=== PATIENT | male | born 1935 | race Hispanic/Latino ===

== ENCOUNTER 2018-03-03 08:19 | Day surgery (SDC) | payer OTHER, MEDICARE ==
[2018-02-27 10:59] VITALS: BP 159/69
[2018-02-27 11:01] LABS: BASOPHILS % (AUTO) 1.4 % (0.0-5.0); EOSINOPHILS % (AUTO) 7.3 % (0.0-8.0); HEMATOCRIT 42.9 % (42-54); MEAN CORPUSCULAR HEMOGLOBIN 30.9 pg (27.0-33.0); MEAN CORPUSCULAR HGB CONC 33.9 g/dL (32.0-36.0); MEAN CORPUSCULAR VOLUME 91.1 fL (79-99); MONOCYTES % (AUTO) 7.3 % (3.0-13.0); NUCLEATED RED BLOOD CELLS 0.1 % (0.0-0.19); PLATELET COUNT (AUTO) 335 K/uL (130-400); RED BLOOD CELL COUNT(AUTO) 4.71 MIL/uL (4.50-6.20); WHITE BLOOD COUNT (AUTO) 8.7 K/uL (4.8-10.8)
[2018-02-27 11:06] LABS: CREATININE 1.2 mg/dL (0.5-1.5); POTASSIUM 5.6 mmol/L (3.5-5.1)
[2018-03-03] VITALS (16 sets, daily range): BP systolic 142–175; BP diastolic 67–88
[~2018-03-03] VITALS: Ht 167.6 cm; Wt 59.0 kg
[~2018-03-03 08:19] MED LIST: ASPI-555 PO; ATOR20TA65 PO; IPRA3AMP24 IH; LOSA25TA16 PO; METO-391 PO; PANT40TA25 PO
[2018-03-03] MEDS ORDERED: LACTATED RINGERS 1000ML 1,000 ML IV ONE (09:19)
[2018-03-03] MEDS: CEFAZOLIN SODIUM 1 GM VIAL ONE ×2 (09:30→11:21)
[2018-03-03] MEDS ORDERED: NEOMY SULF/POLYMYXIN B SULFATE 1 ML AMPUL IR ONE (09:50)
[2018-03-03] MEDS ORDERED: PROPOFOL 10 MG/ML 20ML VIAL IV ONE (09:56)
[2018-03-03] MEDS ORDERED: FENTANYL CITRATE PF 50 MCG/1 ML 5ML AMP IV ONE (09:56)
[2018-03-03] MEDS ORDERED: ONDANSETRON HCL 4 MG/2 ML VIAL ONE (09:56)
[2018-03-03] MEDS ORDERED: DEXAMETHASONE SOD PHOSPHATE 10MG/ML 1ML VIAL ONE (09:56)
[2018-03-03] MEDS ORDERED: LIDOCAINE PF 2% 5ML ABBOJECT ONE (09:56)
[2018-03-03] MEDS ORDERED: EPHEDRINE SULFATE 50 MG/ML AMPULE ONE (09:58)
[2018-03-03] MEDS ORDERED: ENALAPRILAT DIHYDRATE 1.25MG/ML 1ML VIAL IV ONE (12:30)
[2018-03-03] MEDS ORDERED: FENTANYL CITRATE PF 50 MCG/1 ML 2ML VIAL ONE (13:11)
== END 2018-03-03 14:36 | disposition home or self-care (01) ==
LOC: DAH 08:19 → SUH 08:19
PROVIDERS: ATTEND Surgery
DX: K40.30 Unilateral inguinal hernia, with obstruction, without gangrene, not specified as recurrent (principal); E78.00 Pure hypercholesterolemia, unspecified; I10 Essential (primary) hypertension; J44.9 Chronic obstructive pulmonary disease, unspecified; F17.200 Nicotine dependence, unspecified, uncomplicated; Z72.89 Other problems related to lifestyle; Z79.82 Long term (current) use of aspirin; Z79.899 Other long term (current) drug therapy
CPT/HCPCS: 36415 ×2; 49507; 80048; 84132; 85025; 93005; A4218; A4450; A4452; A4510; A4600; C1781; J0690; J1100; J2001; J2405; J2704; J3010 ×2; J3490 ×3; J7120 ×2

== ENCOUNTER 2025-05-27 01:11 | Inpatient (IN) | payer OTHER, MEDICARE ==
[~2025-05-27] VITALS: Ht 165.1 cm; Wt 50.3 kg
[2025-05-27 01:50] LABS: IMMATURE GRANULOCYTE ABSOLUTE 0.05 K/uL (0-1); NUCLEATED RED BLOOD CELLS 0.0 % (0.0-0.19); PLATELET COUNT (AUTO) 409 K/uL (130-400); RED BLOOD CELL COUNT(AUTO) 3.23 MIL/uL (4.50-6.20); RED CELL DISTRIBUTION WIDTH 15.6 % (11.0-15.5); WHITE BLOOD COUNT (AUTO) 15.4 K/uL (4.8-10.8)
[2025-05-27 01:58] LABS: CREATININE 1.1 mg/dL (0.5-1.3); GLOMERULAR FILTR. RATE CALC 64.0 mL/min (>90); GLUCOSE,RANDOM 122.0 mg/dL (70-105); SODIUM SERUM 138.0 mmol/L (136-145); UREA NITROGEN, BLOOD 25.0 mg/dL (7-18)
[2025-05-27 02:02] LABS: ASPARTATE AMINOTRANSFERASE 24.0 U/L (10-37); CREATINE KINASE, TOTAL 40.0 U/L (21-232); TOTAL PROTEIN, SERUM 6.5 g/dL (6.0-8.3)
[2025-05-27 02:06] LABS: APPEARANCE,URINE CLOUDY (CLEAR); GLUCOSE, URINE (UA) NEGATIVE (NEGATIVE); LEUKOCYTE ESTERASE ,URINE NEGATIVE Leu/uL (NEGATIVE); NITRATE,URINE NEGATIVE (NEGATIVE); OCCULT BLOOD,URINE NEGATIVE (NEGATIVE)
[2025-05-27 02:09] LABS: ADD UA MICROSCOPIC YES
--- NOTE | 2025-05-27 02:31 | ERN ---
ED Note History of Present Illness Stated Complaint: ABDOMINAL PAIN Chief Complaint: Abdominal Pain Time Seen by MD: 01:15 Time Seen by Midlevel: 01:15 Dictation: The patient is an 89-year-old male with a history of dementia, hypertension, hyperlipidemia who presents to the emergency department with complaints of two weeks of lower abdominal pain, low appetite and dark stools. Per family they deny any fevers, denies nausea or vomiting, denies any diarrhea. Allergies: Coded Allergies: No Known Drug Allergies (Unverified Allergy, Unknown, 02/27/18) Home Meds Reported Medications Albuterol Sulfate (Albuterol Sulfate) 2.5 Mg/3 Ml (0.083 %) Vial.neb, 2.5 MG IH Q6HPRN PRN for SHORTNESS OF BREATH/WHEEZING 04/04/25 Fluticasone/Umeclidin/Vilanter (Trelegy Ellipta 100-62.5-25) 100-62.5 Blst.w.dev, 1 PUFF IH DAILY 04/03/25 Albuterol Sulfate (Ventolin Hfa/Proventil Hfa/Proair Hfa) 90 Mcg Puff, 2 INH IH Q4HPRN PRN for SHORTNESS OF BREATH/WHEEZING 04/03/25 Amlodipine Besylate (Amlodipine Besylate) 5 Mg Tablet, 1 TAB PO DAILY 04/03/25 Donepezil HCl (Donepezil HCl) 5 Mg Tablet, 1 TAB PO HS 04/03/25 Atorvastatin Calcium (Atorvastatin Calcium) 20 Mg Tablet, 20 MG PO HS, TAB 02/27/18 Past Medical History Past Medical History: COPD, Dementia, Hypertension, Renal Disese, Other Additional Past Medical Hx: Chronic respiratory failure on home oxygen Surgical History: Unknown Surgical History Other: INCARCERATED R INGUINAL HERNIA Family History: Negative Social History: Smokers, Negative RN Note Reviewed/Agreed w/PFSH: Yes Review of System Dictation Constitutional: Negative for fever,chills, and weight loss positive for low appetite Eyes: Negative for injury, pain,redness, and discharge ENT: Negative for injury,pain or swelling Cardiovascular: Negative for chest pain, palpitations, and edema Respiratory: Negative for shortness of breath, cough, and wheezing, Abdomen/GI: Negative for nausea, vomiting, diarrhea, and constipation positive for abdominal pain, dark stools Back: Negative for injury and pain : Negative for injury, bleeding and discharge MS/Extremity: Negative for injury and deformity Skin: Negative for rash, and discoloration Neuro: Negative for headache, , numbness, tingling, and seizure positive for weakness Psych: Negative for suicide ideation, homicidal ideation, and hallucinations Initial Vital Sign VS Vital Signs Date Time Temp Pulse Resp B/P (MAP) Pulse Ox O2 Delivery O2 Flow Rate FiO2 05/27/25 01:14 100 18 149/82 97 0 05/27/25 01:34 98.2 Room Air* 21 Physical Exam Dictation Vital Signs reviewed General Appearance: Alert, oriented x 3, no acute distress, well developed, nourished. Head and Face: non-traumatic. Eyes: PERRL, pink conjunctivas, eyelid no trauma, anterior chamber with arcus senilis. Ears: Pinnas intact and no signs of trauma or erythema ear canals clear and no discharge TM no erythema Nose: No discharge, no bleeding. Oropharynx: Mouth normal, tongue pink. pharynx clear,no erythema, tonsils no exudates, no abscesses noted, mucous membrane moist Neck: Supple, non-tender, no thyromegaly, no masses, no JVD, no bruits Breast:Deferred Chest:No tenderness, no crepitus, no paradoxical movement, no retractions Lungs:Clear, well-ventilated, symmetric, no rales, no wheezing, no rhonchi, no stridor, good breath sounds bilaterally Heart: Regular rate, regular rhythm, no murmur, no gallops Vascular: no peripheral edema, Abdomen: Soft, positive bowel sounds, nondistended, no guarding, nontender, no rebound, no masses no hepatomegaly, no splenomegaly, no Velasquez's sign, no hernias. Rectal: Deferred Genital: Deferred Neurological: Normal speech, motor function intact, sensory function intact Musculoskeletal: Neck nontender, full range of motion, back nontender, full range of motion, Extremities: nontender, full range of motion Skin: Color pink, dry, no turgor, no rash, no lacerations, no abrasions, no contusions. Lymphatic: Deferred Results (Laboratory/Radiology) Laboratory/Radiology Laboratory Tests Test 05/27/25 01:44 05/27/25 01:49 05/27/25 02:31 12/4/25 04:54 White Blood Count 15.4 K/uL (4.8-10.8) H Red Blood Count 3.23 MIL/uL (4.50-6.20) L Hemoglobin 9.4 g/dL (14.0-18.0) L Hematocrit 28.4 % (42-54) L Mean Corpuscular Volume 87.9 fL (79-99) Mean Corpuscular Hemoglobin 29.1 pg (27.0-33.0) Mean Corpuscular Hemoglobin Concent 33.1 g/dL (32.0-36.0) Red Cell Distribution Width 15.6 % (11.0-15.5) H Platelet Count 409 K/uL (130-400) H Mean Platelet Volume 10.4 fL (7.5-10.5) Immature Granulocyte % (Auto) 0.3 % (0-1) Neutrophils (%) (Auto) 84.1 % (40.0-77.0) H Lymphocytes (%) (Auto) 7.9 % (21.0-51.0) L Monocytes (%) (Auto) 6.8 % (3.0-13.0) Eosinophils (%) (Auto) 0.6 % (0.0-8.0) Basophils (%) (Auto) 0.3 % (0.0-5.0) Neutrophils # (Auto) 12.9 K/uL (1.8-7.7) H Lymphocytes # (Auto) 1.2 K/uL (1.0-4.8) Monocytes # (Auto) 1.0 K/uL (0.1-1.0) Eosinophils # (Auto) 0.09 K/uL (0.00-0.70) Basophils # (Auto) 0.05 K/uL (0.00-0.20) Absolute Immature Granulocyte (auto 0.05 K/uL (0-1) Nucleated Red Blood Cells 0.0 % (0.0-0.19) White Cell Morphology Comment CONSISTENT W/DIFF Sodium Level 138 mmol/L (136-145) Potassium Level 4.2 mmol/L (3.5-5.1) Chloride Level 100 mmol/L (101-111) L Carbon Dioxide Level 30 mmol/L (21-32) Blood Urea Nitrogen 25 mg/dL (7-18) H Creatinine 1.1 mg/dL (0.5-1.3) Glomerular Filtration Rate Calc 64 mL/min (>90) Random Glucose 122 mg/dL (70-105) H Total Calcium 8.7 mg/dL (8.5-10.1) Total Bilirubin 0.6 mg/dL (0.2-1.0) Direct Bilirubin 0.2 mg/dL (0.0-0.3) Aspartate Amino Transf (AST/SGOT) 24 U/L (10-37) Alanine Aminotransferase (ALT/SGPT) 16 U/L (12-78) Alkaline Phosphatase 97 U/L (50-136) Total Creatine Kinase 40 U/L (21-232) # Troponin I High Sensitivity 27 ng/L (4-75) Total Protein 6.5 g/dL (6.0-8.3) Albumin 2.8 g/dL (3.5-5.0) L Lipase 69 U/L (16-77) Urine Color LIGHT-YELLOW (YELLOW) Urine Appearance CLOUDY (CLEAR) H Urine pH 7.0 (5.0-8.0) Urine Specific [place] 1.019 (1.001-1.031) Urine Protein 30 mg/dL (NEGATIVE) H Urine Glucose (UA) NEGATIVE mg/dL (NEGATIVE) Urine Ketones NEGATIVE mg/dL (NEGATIVE) Urine Occult Blood NEGATIVE (NEGATIVE) Urine Nitrate NEGATIVE (NEGATIVE) Urine Bilirubin NEGATIVE mg/dL (NEGATIVE) Urine Urobilinogen 0.2 mg/dL (0.2-1.0) Urine Leukocyte Esterase NEGATIVE [place]/uL Urine RBC None /HPF (0-1) Urine WBC None /HPF (0-1) Urine Amorphous Crystals (Auto) RARE /LPF (None Seen) Urine Bacteria RARE /HPF (None Seen) Lactic Acid Level 1.8 mmol/L (0.8-2.5) Phosphorus Level 4.0 mg/dL (2.5-4.9) Influenza Type A Antigen Negative For Type A Influenza Type B Antigen Negative For Type B SARS-CoV-2 Antigen (Rapid) PRESUMPTIVE NEGATIVE Labs Reviewed?: Yes ED Course ED Course Orders Procedure Category Date Status Time Cbc With Differential LAB 05/27/25 Complete 01:33 Troponin I High LAB 05/27/25 Complete Sensitivity 01:33 Urinalysis Profile LAB 05/27/25 Complete 01:33 Occult Blood Stool LAB 05/27/25 Logged Single Only 01:33 0.9%Nacl 1000ml (Ns PHA 05/27/25 Complete 1000ml) 02:00 Creatine Kinase, Total LAB 05/27/25 Complete 01:33 Lipase LAB 05/27/25 Complete 01:33 Basic Metabolic Panel LAB 05/27/25 Complete 01:33 Hepatic Function Panel LAB 05/27/25 Complete 01:33 Pantoprazole 40mg Inj PHA 05/27/25 Complete (Protonix 40mg Inj 02:00 Ct Abdomen/Pelvis CT 05/27/25 Resulted W/Contrast 02:23 Blood Cult ASHLEE 05/27/25 In Process 02:23 Lactic Acid LAB 05/27/25 Complete 02:23 Ceftriaxone 1g Vial PHA 05/27/25 Complete (Rocephine 1g Inj) 03:00 Phosphorus LAB 05/27/25 Complete 02:57 Chest 1vw RAD 05/27/25 Resulted 03:00 Covid19 (Sars Antigen LAB 05/27/25 Complete Rapid) 04:45 Influenza Type A & B, LAB 05/27/25 Complete Rapid 04:45 Current Medications Medications (Trade) Dose Ordered Sig/Kirsten Route PRN Reason Start Time Stop Time Status Last Admin Dose Admin Ceftriaxone Sodium (ROCEphine 1G INJ) 1 gm ONCE ONCE IVPB 05/27/25 03:00 05/27/25 03:01 DC 05/27/25 03:06 Pantoprazole Sodium (PROTonix 40MG INJ) 40 mg ONCE ONCE IVP 05/27/25 02:00 05/27/25 02:01 DC 05/27/25 03:06 Sodium Chloride 1,000 ml @ 0 mls/hr ONCE ONCE IV 05/27/25 02:00 05/27/25 02:01 DC 05/27/25 03:06 Vital Signs Date Time Temp Pulse Resp B/P (MAP) Pulse Ox O2 Delivery O2 Flow Rate FiO2 05/27/25 05:09 83 18 140/68 95 Room Air* 0 05/27/25 03:44 90 18 127/52 96 Room Air* 0 05/27/25 02:38 85 16 140/71 96 Room Air* 0 21 05/27/25 01:34 98.2 94 16 139/76 100 Room Air* 0 21 05/27/25 01:14 100 18 149/82 97 0 Medical Decision Making MDM The patient is an 89-year-old male with a history of dementia, hypertension, hyperlipidemia who presents to the emergency department with complaints of two weeks of lower abdominal pain, low appetite and dark stools. Per family they deny any fevers, denies nausea or vomiting, denies any diarrhea. DX & DISP Disposition: Inpatient Departure Impression: Primary Impression: COPD (chronic obstructive pulmonary disease) Additional Impressions: Abdominal pain, Nephrolithiasis Condition: Stable Referrals: RICHARD MARINELLI MD (PCP) HEATHER ROLDAN May 27, 2025 02:31 PEGGY LE MD May 27, 2025 06:01
[2025-05-27 02:56] LABS: WBC MORPHOLOGY CONSISTENT W/DIFF
[2025-05-27] MEDS: 0.9%NACL 1000ML 1,000 ML IV ONE (03:06)
--- NOTE | 2025-05-27 03:28 | NUR ---
PATIENT AT CT SCAN AT THIS TIME.
--- NOTE | 2025-05-27 04:13 | HMCIMG ---
EXAM: CR Chest, single view. CLINICAL HISTORY: Shortness of breath. COMPARISON: Prior chest radiograph dated April 02, 2025 FINDINGS: Mild bronchiectatic changes in the right mid zone. No acute infiltrates or effusion. No pleural effusion or pneumothorax. The cardiomediastinal silhouette is within normal limits. Atherosclerotic calcification of the aortic arch and descending thoracic aorta. No acute osseous abnormality. Mild degenerative changes in the mid and lower thoracic spine. Degenerative changes in the bilateral acromioclavicular joints. Subacute fractures involving the right eighth, ninth, 10th, 11th, and 12th ribs. IMPRESSION: Mild bronchiectatic changes in the right mid zone. No acute infiltrates or effusion. Degenerative changes in the bilateral acromioclavicular joints. Subacute fractures involving the right eighth, ninth, 10th, 11th, and 12th ribs. Compared to the prior study, there is an interval resolution of the groundglass opacity in the right lower lobe. /[place]
--- NOTE | 2025-05-27 04:19 | HMCIMG ---
EXAM: CT Abdomen and Pelvis without and with IV contrast CLINICAL HISTORY: Lower abdominal pain and fever. TECHNIQUE: Thin collimated axial CT images of the abdomen and pelvis were obtained with sagittal and coronal reformatted images also submitted. CT scan is done according to ALARA (As Low As Reasonably Achievable). CONTRAST: Contrast details are not available. COMPARISON: Prior CT chest, abdomen, and pelvis dated April 02, 2025. FINDINGS: Unremarkable visualized lung parenchyma. Cystic bronchiectatic changes in the lingula. Mild fatty infiltration of the liver. No obvious focal lesion. A 2.4 cm calculus in the gallbladder body. No wall thickening or features of cholecystitis. No focal abnormality within the pancreas, spleen or adrenal glands. Nonenhancing Bosniak class I cyst in the bilateral kidneys, the largest measuring up to 3.3 cm on the right side. Nonobstructive punctate 2 mm calculus in the right kidney interpolar calyx. A component of mild constipation is present in the colon. There is no obvious bowel wall thickening. Bowel loops are normal in caliber without evidence of obstruction or ileus. The appendix is normal. There is no abnormality within the urinary bladder. Normal-sized prostate with median lobe hypertrophy projecting into the bladder base. Abdominal and pelvic vessels are patent. Diffuse atherosclerotic calcification of the abdominal aorta and its branches, with approximately 50% narrowing of the origin of the bilateral common iliac arteries. Approximately 40-50% narrowing of the abdominal aorta at the level of the superior mesenteric artery. No lymphadenopathy. No free fluid. There is no acute osseous abnormality. Degenerative changes in the bilateral sacroiliac, superolateral hip joint, and degenerative changes at the L5-S1 level with vacuum phenomena. Moderate right facet arthropathy. Moderate narrowing of the right neural foramina. Old healed fractures involving the posterior aspect of the right 8th to 12th ribs. IMPRESSIONS: No acute process in the abdomen or pelvis. Cholelithiasis without evidence of cholecystitis. Bilateral renal cortical cysts. Nonobstructive punctate 2 mm calculus in the right kidney interpolar calyx. A component of mild constipation is present in the colon. 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 Approximately 50% narrowing of the origin of the bilateral common iliac arteries. Approximately 40-50% narrowing of the abdominal aorta at the level of the superior mesenteric artery. Compared to the prior study, there is an interval resolution of the subsegmental atelectasis in the posterior basal segment of the right lower lobe; the remaining findings are stable. /[place]
[2025-05-27 05:36] LABS: COVID19 (SARS ANTIGEN RAPID) PRESUMPTIVE NEGATIVE (NEGATIVE); INFLUENZA TYPE A Negative For Type A (NEGATIVE); INFLUENZA TYPE B Negative For Type B (NEGATIVE)
[2025-05-27] MEDS: ZOSYN 3.375GM +NS 50ML IV SCH (06:24)
[2025-05-27] MEDS: DEXTROSE 5 % AND 0.9 % NACL 1,000 ML IV SCH (06:24)
[2025-05-27] MEDS ORDERED: IOHEXOL-350 75 ML VIAL IV ONE (07:15)
--- NOTE | 2025-05-27 07:53 | NUR ---
ATTEMPTED TO CALL REPORT AT THIS TIME, IVONNE TITUS STATED THE PT IS GOING TO [facility]. PENDING CALL BACK FROM NURSE.
--- NOTE | 2025-05-27 08:16 | NUR ---
GAVE REPORT TO JASMYNE AT THIS TIME.
[2025-05-27 08:50] VITALS: BP 135/76; PULSE 89; RESP 18; TEMP 98.4; O2SAT 96
[2025-05-27] MEDS: DOXYCYCLINE HYCLATE 100 MG TABLET PO SCH (10:40)
[2025-05-27] MEDS: ENOXAPARIN SODIUM 40 MG/0.4 ML SYRINGE SQ SCH (10:40)
--- NOTE | 2025-05-27 11:13 | NUR ---
DCP:HOME Pt currently lives at home with his son and daughter in law. Pt states that at home he uses a wheelchair and cane to ambulate. Pt has a provider that works with him 4 hrs a day to assist with all ADLs, home management, and meals. PCP is Dr. Reyes. At [place] pt will want to go home and family can assist with transportation.
[2025-05-27 12:03] VITALS: BP 114/63; PULSE 84; RESP 18; TEMP 97.9
[2025-05-27 16:28] VITALS: BP 103/67; PULSE 89; RESP 20; TEMP 98
--- NOTE | 2025-05-27 16:50 | NUR ---
GI CONSULT Dr. Rodriguez acknowledged message re: new consult for epigastric pain. He will round later tonight.
--- NOTE | 2025-05-27 16:51 | NUR ---
GI CONSULT: NEW ORDERS Received phone call from Dr. Rodriguez. New orders received. EGD anticipated for tomorrow, 05/28/25. NPO after midnight. Lovenox to be held.
[2025-05-27 20:00] VITALS: BP 141/69; PULSE 75; RESP 18; TEMP 97.7
--- NOTE | 2025-05-27 22:00 | NUR ---
md consult dr. farrell to see and examen patient with orders
[2025-05-28] VITALS (28 sets, daily range): BP systolic 118–163; BP diastolic 54–80; PULSE 59–87; RESP 15–18; TEMP 97.3–98; O2SAT 98
[2025-05-28 04:36] LABS: IMMATURE GRANULOCYTE ABSOLUTE 0.04 K/uL (0-1); NUCLEATED RED BLOOD CELLS 0.0 % (0.0-0.19); PLATELET COUNT (AUTO) 330 K/uL (130-400); RED BLOOD CELL COUNT(AUTO) 2.70 MIL/uL (4.50-6.20); RED CELL DISTRIBUTION WIDTH 15.6 % (11.0-15.5); WHITE BLOOD COUNT (AUTO) 9.4 K/uL (4.8-10.8)
[2025-05-28 04:51] LABS: INR 0.98 (0.85-1.15)
[2025-05-28 05:11] LABS: CREATININE 1.0 mg/dL (0.5-1.3); GLOMERULAR FILTR. RATE CALC 72.0 mL/min (>90); GLUCOSE,RANDOM 100.0 mg/dL (70-105); SODIUM SERUM 139.0 mmol/L (136-145); UREA NITROGEN, BLOOD 20.0 mg/dL (7-18)
--- NOTE | 2025-05-28 06:35 | HP ---
DATE OF SERVICE: 05/27/2025 HISTORY AND PHYSICAL PRESENTING COMPLAINT: Abdominal pain. HISTORY OF PRESENT ILLNESS: An 89-year-old male with a history of dementia, COPD, COVID and pneumonia, presented to the hospital with abdominal pain and poor oral intake. The patient's symptoms started more than 2 weeks ago. Pain localized to the epigastric area. No nausea or vomiting. The patient also found with poor oral intake. No dysuria or urinary frequency. CT of the abdomen has been done, which shows cholelithiasis without cholecystitis. There was also found to have nonobstructing stone in the right kidney. WBC elevated at 15,000. No dysuria, no hematuria. PAST MEDICAL HISTORY: Dementia. COPD. Hypertension. Chronic respiratory failure, on home oxygen. Pneumonia. COVID. PAST SURGICAL HISTORY: Hernia repair. ALLERGIES: No known drug allergies. HOME MEDICATIONS: Reviewed. SOCIAL HISTORY: No alcohol, tobacco, or illicit drug use. FAMILY HISTORY: Noncontributory. REVIEW OF SYSTEMS: Greater than 10 systems were reviewed. Negative except as documented above. PHYSICAL EXAMINATION: GENERAL: An elderly male, awake. VITAL SIGNS: Temperature 98.2, pulse 89, respirations 18, blood pressure 135/76. EYES: No icterus. Pupils equal and reactive. HENT: No oral thrush seen. Moist oral mucosa. NECK: Supple. No JVD or thyromegaly. LUNGS: Good air entry. No rales. A few crackles at the bases. CARDIOVASCULAR: S1 and S2 regular. No murmur heard. ABDOMEN: Full, soft. Bowel sound is present. No organomegaly. Tenderness to the epigastrium. CENTRAL NERVOUS SYSTEM: Awake, alert and oriented x 3. No focal deficits. SKIN: No rashes. No itchiness. LYMPHATIC: No peripheral lymphadenopathy. BACK: No deformity. No pressure ulcer. MUSCULOSKELETAL: No joint swelling, erythema or tenderness. LABORATORY DATA: Sodium 138, potassium 4.2, BUN 21, creatinine 1.1. WBC 15.4, hemoglobin 9.4, platelets 409. Influenza antigen negative. Urinalysis negative. RADIOLOGY: CT of the abdomen shows cholelithiasis without cholecystitis. A 2-mm right renal stone, which is nonobstructing. Chest x-ray unremarkable. ASSESSMENT: An 89-year-old male presented with gastric pain and weakness. Current problems include: Pneumonia. Dehydration. Possible gastritis. Hypertension. Abdominal pain. PLAN: Admit the patient to medical floor, telemetry. The patient will be placed on IV fluid. The patient will be placed on Protonix. Gastroenterology evaluation. Tylenol as needed for pain. Zofran as needed for nausea and vomiting. Home medications will be reconciled. TID: [id number] RECEIPT: [id number] [facility]
--- NOTE | 2025-05-28 09:08 | PN ---
INFECTIOUS DISEASE PROGRESS NOTE Date of Service: May 28, 2025 SUBJECTIVE: This 89-year-old patient is being seen today at bedside. He is in no respiratory distress he is calm laying in bed. No fever or chills. He is in no respiratory distress. Currently on NPO status awaiting EGD. He continues on doxycycline and Zosyn. No acute events repair reported overnight. We will follow up with EGD results. PHYSICAL EXAM EYES: No icterus. Pupils equal and reactive. HENT: No oral thrush seen. Moist oral mucosa. NECK: Supple. No JVD or thyromegaly. LUNGS: Good air entry. No rales. A few crackles at the bases. CARDIOVASCULAR: S1 and S2 regular. No murmur heard. ABDOMEN: Full, soft. Bowel sound is present. No organomegaly. Tenderness to the epigastrium. CENTRAL NERVOUS SYSTEM: Awake, alert and oriented x 3. No focal deficits. SKIN: No rashes. No itchiness. LYMPHATIC: No peripheral lymphadenopathy. BACK: No deformity. No pressure ulcer. MUSCULOSKELETAL: No joint swelling, erythema or tenderness. Vital Sign (Last 12 Hours) 05/28/25 05/28/25 00:00 04:00 Temp 97.9 98.1 Pulse 85 80 Resp 17 18 B/P (MAP) 144/80 135/70 Pulse Ox 97 99 O2 Delivery Room Air Room Air Intake & Output (last 24hrs) 05/27/25 05/27/25 05/28/25 15:00 23:00 07:00 Intake Total 250 ml 562.5 ml 550.0 ml Balance 250 ml 562.5 ml 550.0 ml LABS: Laboratory: Test 05/28/25 04:03 05/27/25 04:54 05/27/25 02:31 05/27/25 01:49 Range/Units White Blood Count 9.4 4.8-10.8 K/uL Red Blood Count 2.70 L 4.50-6.20 MIL/uL Hemoglobin 7.8 L 14.0-18.0 g/dL Hematocrit 23.4 L 42-54 % Mean Corpuscular Volume 86.7 79-99 fL Mean Corpuscular Hemoglobin 28.9 27.0-33.0 pg Mean Corpuscular Hemoglobin Concent 33.3 32.0-36.0 g/dL Red Cell Distribution Width 15.6 H 11.0-15.5 % Platelet Count 330 130-400 K/uL Mean Platelet Volume 10.6 H 7.5-10.5 fL Immature Granulocyte % (Auto) 0.4 0-1 % Neutrophils (%) (Auto) 79.1 H 40.0-77.0 % Lymphocytes (%) (Auto) 10.7 L 21.0-51.0 % Monocytes (%) (Auto) 7.4 3.0-13.0 % Eosinophils (%) (Auto) 1.9 0.0-8.0 % Basophils (%) (Auto) 0.5 0.0-5.0 % Neutrophils # (Auto) 7.5 1.8-7.7 K/uL Lymphocytes # (Auto) 1.0 1.0-4.8 K/uL Monocytes # (Auto) 0.7 0.1-1.0 K/uL Eosinophils # (Auto) 0.18 0.00-0.70 K/uL Basophils # (Auto) 0.05 0.00-0.20 K/uL Absolute Immature Granulocyte (auto 0.04 0-1 K/uL Nucleated Red Blood Cells 0.0 0.0-0.19 % Prothrombin Time 10.4 9.6-11.6 SEC Prothromb Time International Ratio 0.98 0.85-1.15 Activated Partial Thromboplast Time 27.3 26.3-35.5 SEC Sodium Level 139 136-145 mmol/L Potassium Level 3.5 3.5-5.1 mmol/L Chloride Level 104 101-111 mmol/L Carbon Dioxide Level 26 21-32 mmol/L Blood Urea Nitrogen 20 H 7-18 mg/dL Creatinine 1.0 0.5-1.3 mg/dL Glomerular Filtration Rate Calc 72 >90 mL/min Random Glucose 100 70-105 mg/dL Total Calcium 7.7 L 8.5-10.1 mg/dL Influenza Type A Antigen Negative For Type A NEGATIVE Influenza Type B Antigen Negative For Type B NEGATIVE SARS-CoV-2 Antigen (Rapid) PRESUMPTIVE NEGATIVE NEGATIVE Lactic Acid Level 1.8 0.8-2.5 mmol/L Phosphorus Level 4.0 2.5-4.9 mg/dL Urine Color LIGHT-YELLOW YELLOW Urine Appearance CLOUDY H CLEAR Urine pH 7.0 5.0-8.0 Urine Specific [place] 1.019 1.001-1.031 Urine Protein 30 H NEGATIVE mg/dL Urine Glucose (UA) NEGATIVE NEGATIVE mg/dL Urine Ketones NEGATIVE NEGATIVE mg/dL Urine Occult Blood NEGATIVE NEGATIVE Urine Nitrate NEGATIVE NEGATIVE Urine Bilirubin NEGATIVE NEGATIVE mg/dL Urine Urobilinogen 0.2 0.2-1.0 mg/dL Urine Leukocyte Esterase NEGATIVE NEGATIVE [place]/uL Urine RBC None 0-1 /HPF Urine WBC None 0-1 /HPF Urine Amorphous Crystals (Auto) RARE None Seen /LPF Urine Bacteria RARE None Seen /HPF Test 05/27/25 01:44 Range/Units White Cell Morphology Comment CONSISTENT W/DIFF Total Bilirubin 0.6 0.2-1.0 mg/dL Direct Bilirubin 0.2 0.0-0.3 mg/dL Aspartate Amino Transf (AST/SGOT) 24 10-37 U/L Alanine Aminotransferase (ALT/SGPT) 16 12-78 U/L Alkaline Phosphatase 97 50-136 U/L Total Creatine Kinase 40 # 21-232 U/L Troponin I High Sensitivity 27 4-75 ng/L Total Protein 6.5 6.0-8.3 g/dL Albumin 2.8 L 3.5-5.0 g/dL Lipase 69 16-77 U/L ASSESSMENT: Pneumonia. Dehydration. Possible gastritis. Hypertension. Abdominal pain. - leukocytosis, improved PLAN: Admit the patient to medical floor, telemetry. continue IV fluids continue Protonix NPO status Tylenol as needed for pain. Zofran as needed for nausea and vomiting. pending EGD this morning. This case has been discussed with my supervising physician . The case has been discussed and agreed upon. LUZ RAMIREZ [facility] May 28, 2025 09:08
--- NOTE | 2025-05-28 12:16 | CONS ---
GASTROENTEROLOGY CONSULTATION REASON FOR CONSULTATION: Epigastric pain and weight loss plus anemia. HISTORY OF PRESENT ILLNESS: The patient is an 89-year-old male with a history of hypertension, hyperlipidemia, and dementia who was admitted with epigastric pain and also reports weight loss, who has anemia on labs, for which GI evaluation and management was sought. The patient reports he has been having epigastric pain for about 2 weeks. The pain radiates to the lower abdomen and is unable to tell how long the pain lasts. The pain has been unchanged with food intake or bowel movements. The patient is noted to have lost 10 pounds unintentionally over the last 1 month. He denies any melena, hematochezia, diarrhea, or constipation. He denies any abdominal trauma or history of PUD. He has no family history of colon cancer, stomach cancer or IBD. ALLERGIES: No known drug allergies. PAST MEDICAL AND PAST SURGICAL HISTORY: See above, also history of hypertension, hyperlipidemia, dementia but no CAD, [place], CVA, seizure disorder, PUD or asthma. He also has documented history of chronic respiratory failure, on home oxygen. SOCIAL HISTORY: Admits to past history of smoking and reports he quit this habit over 5 years ago. He denies alcohol use or illicit drug use. FAMILY HISTORY: Denies family history of colon cancer, stomach cancer, IBD. REVIEW OF SYSTEMS: CONSTITUTIONAL: He reports epigastric pain radiating to lower abdomen. Denies fevers or chills. OPHTHALMOLOGY: No recent vision change, eye pain, periorbital swelling, redness or drainage. ENT: No ear pain, tinnitus, hearing loss, nasal congestion, rhinorrhea, sore throat or voice changes. RESPIRATORY: No wheezes, rhonchi, epistaxis, chest congestion, or cough. CARDIOVASCULAR: No chest pain, palpitations, or leg swelling. GENITOURINARY: No dysuria, hematuria, urinary urgency or frequency. GASTROINTESTINAL: He has been having lower abdominal pain. Denies nausea, vomiting, heartburn, constipation, diarrhea or gross GI bleed. MUSCULOSKELETAL: He has joint pains on and off. Denies joint swelling or backache. NEUROLOGY: No tingling, numbness, vision changes, hearing loss. PSYCHIATRY: No history of depression, anxiety, suicidal plans or ideation. ENDOCRINOLOGY: No history of diabetes, thyroid disease, or hyperlipidemia to his knowledge. HEMATOLOGY/LYMPHATICS: The patient denied any inherited bleeding disorders, easy bruising, swollen, tender or palpable lymph nodes. PHYSICAL EXAMINATION: GENERAL: The patient is an 89-year-old male who appears his age, seen resting in bed in no acute respiratory distress. VITAL SIGNS: Blood pressure 141/69, heart rate 75, respirations 18, temperature 97.7 degrees Fahrenheit. SKIN: Warm and dry. No active dermatosis. HEENT: The patient's head was normocephalic, atraumatic. Pupils are reactive. Sclerae nonicteric. Oral mucosa was moist. No obvious lesion. No blood noted. Nasal mucosa showed no epistaxis, septal deviation or perforation. NECK: No masses, no jugular venous distention, no lymphadenopathy, no thyromegaly. LUNGS: Decreased breath sounds bilaterally. HEART: S1, S2. No obvious murmurs, rubs, or gallops auscultated. ABDOMEN: Symmetric, soft, with active bowel sounds. No hepatomegaly, masses. No tenderness noted. EXTREMITIES: No cyanosis, clubbing or edema. RECTAL: Deferred. LABORATORY DATA: WBC 15.4, hemoglobin 9.4, hematocrit 28.4, MCV of 87.9, platelet count of 409. Serum chemistry revealed sodium 138, potassium 4.2, chloride 100, CO2 of 30, BUN 25, creatinine 1.1, GFR of 64, random glucose of 122, total calcium 8.7, bilirubin total 0.6, direct 0.2, AST 24, ALT 16, alkaline phosphatase 97, total creatinine kinase of 40, troponin I high sensitivity at 27, total protein at 6.5, albumin at 2.8, lipase at 69. Urinalysis showed light yellow cloudy urine, pH of 7, specific gravity 1.019, total protein 30. Glucose, ketone, occult blood, nitrite, bilirubin negative. Urobilinogen 0.2. Leukocyte esterase negative. RBC, WBC none. Amorphous crystalline rare and urine bacteria rare. Influenza type A and B antigens were negative. SARS-CoV-2 antigen rapid was presumptive negative. DIAGNOSTIC DATA: CT scan of the abdomen and pelvis done earlier today showed no acute process. Cholelithiasis without evidence of cholecystitis noted. Bilateral renal cortical cysts noted. Nonobstructive punctate 2 mm calculus in the right kidney. Interpolar calyx noted. Component of mild constipation is present in the colon. 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 Approximately 50% narrowing of the origin of the bilateral common iliac arteries and 40% to 50% narrowing of the abdominal aorta at the level of the superior mesenteric artery. Mild fatty infiltration of the liver also noted. Unremarkable visualized lung parenchyma noted and cystic bronchiectasis changes in the lingula noted. IMPRESSION: 1. Epigastric pain. 2. Acute anemia. 3. Weight loss. 4. Dementia. 5. Hypertension. 6. Hyperlipidemia. 7. Chronic obstructive pulmonary disease. 8. Renal insufficiency. 9. Oxygen dependent. PLAN: 1. Keep on a clear liquid diet. 2. Continue Protonix therapy. 3. Recommend anti-reflux measures. 4. Recommend EGD also. 5. If EGD unrevealing, we will recommend a colonoscopy. 6. Start lactulose for his constipation. 7. Follow up with a.m. Labs. 8. Continue to monitor CBC and transfuse PRBCs as needed to keep hemoglobin at least 7. Dr. Nicholas, thank you for allowing me to participate in the care of this patient. TID: [id number] RECEIPT: [id number]
[2025-05-28] MEDS ORDERED: LIDOCAINE HCL 1% 20 ML VIAL ONE (12:58)
[2025-05-29] VITALS (7 sets, daily range): BP systolic 127–146; BP diastolic 66–83; PULSE 74–89; RESP 16–19; TEMP 97.8–98.4; O2SAT 95–98
[2025-05-29 05:49] LABS: IMMATURE GRANULOCYTE ABSOLUTE 0.03 K/uL (0-1); NUCLEATED RED BLOOD CELLS 0.0 % (0.0-0.19); PLATELET COUNT (AUTO) 352 K/uL (130-400); RED BLOOD CELL COUNT(AUTO) 2.97 MIL/uL (4.50-6.20); RED CELL DISTRIBUTION WIDTH 15.7 % (11.0-15.5); WHITE BLOOD COUNT (AUTO) 9.5 K/uL (4.8-10.8)
[2025-05-29 06:01] LABS: CREATININE 0.8 mg/dL (0.5-1.3); GLOMERULAR FILTR. RATE CALC 85.0 mL/min (>90); GLUCOSE,RANDOM 110.0 mg/dL (70-105); SODIUM SERUM 139.0 mmol/L (136-145); UREA NITROGEN, BLOOD 10.0 mg/dL (7-18)
[2025-05-29] MEDS ORDERED: PoTASSium chl 10% ELIXIR 20MEQ 20 MEQ/15 ML UDCUP PO PRN (11:30)
[2025-05-29] MEDS: PoTASSium chloRIDE 20MEQ ER 20 MEQ ERTAB PO PRN (12:44)
--- NOTE | 2025-05-29 14:43 | PN ---
INFECTIOUS DISEASE PROGRESS NOTE Date of Service: May 29, 2025 SUBJECTIVE: This is a 89-year-old male patient who was seen and examined at bedside in room 414. Patient is status post EGD with findings of acute gastritis and esophagitis without bleeding. Patient is already on Protonix 40 mg p.o. daily. Patient stated that the abdominal pain is resolving. We will advance diet as tolerated. No fever, temperature is 97.9 and the WBC has trended down to 9.5. We will continue on Zosyn and doxycycline. PHYSICAL EXAM EYES: No icterus. Pupils equal and reactive. HENT: No oral thrush seen. Moist oral mucosa. NECK: Supple. No JVD or thyromegaly. LUNGS: Good air entry. Crackles at the bases. CARDIOVASCULAR: S1 and S2 regular. No murmur heard. ABDOMEN: Full, soft. Bowel sound is present. Abdominal pain POA, resolving. the epigastrium. CENTRAL NERVOUS SYSTEM: Awake, alert and oriented x 3. SKIN: No rashes. No itchiness. LYMPHATIC: No peripheral lymphadenopathy. BACK: No deformity. No pressure ulcer. MUSCULOSKELETAL: No joint swelling, erythema or tenderness. Vital Sign (Last 12 Hours) 05/29/25 05/29/25 05/29/25 05/29/25 04:00 08:00 11:01 12:00 Temp 98.1 97.9 98.1 Pulse 89 78 75 Resp 16 17 16 B/P (MAP) 140/71 146/83 127/69 Pulse Ox 94 98 98 100 O2 Delivery Room Air Room Air Room Air* Room Air O2 Flow Rate 0 FiO2 21 Intake & Output (last 24hrs) 05/28/25 05/28/25 05/29/25 15:00 23:00 07:00 Intake Total 25.0 ml 300.0 ml 600.0 ml Output Total 200 ml Balance -175.0 ml 300.0 ml 600.0 ml LABS: Laboratory: Test 05/29/25 05:32 05/28/25 04:03 Range/Units White Blood Count 9.5 4.8-10.8 K/uL Red Blood Count 2.97 L 4.50-6.20 MIL/uL Hemoglobin 8.7 L 14.0-18.0 g/dL Hematocrit 26.2 L 42-54 % Mean Corpuscular Volume 88.2 79-99 fL Mean Corpuscular Hemoglobin 29.3 27.0-33.0 pg Mean Corpuscular Hemoglobin Concent 33.2 32.0-36.0 g/dL Red Cell Distribution Width 15.7 H 11.0-15.5 % Platelet Count 352 130-400 K/uL Mean Platelet Volume 10.0 7.5-10.5 fL Immature Granulocyte % (Auto) 0.3 0-1 % Neutrophils (%) (Auto) 79.3 H 40.0-77.0 % Lymphocytes (%) (Auto) 10.9 L 21.0-51.0 % Monocytes (%) (Auto) 6.3 3.0-13.0 % Eosinophils (%) (Auto) 2.7 0.0-8.0 % Basophils (%) (Auto) 0.5 0.0-5.0 % Neutrophils # (Auto) 7.5 1.8-7.7 K/uL Lymphocytes # (Auto) 1.0 1.0-4.8 K/uL Monocytes # (Auto) 0.6 0.1-1.0 K/uL Eosinophils # (Auto) 0.26 0.00-0.70 K/uL Basophils # (Auto) 0.05 0.00-0.20 K/uL Absolute Immature Granulocyte (auto 0.03 0-1 K/uL Nucleated Red Blood Cells 0.0 0.0-0.19 % Sodium Level 139 136-145 mmol/L Potassium Level 3.1 L 3.5-5.1 mmol/L Chloride Level 105 101-111 mmol/L Carbon Dioxide Level 26 21-32 mmol/L Blood Urea Nitrogen 10 7-18 mg/dL Creatinine 0.8 0.5-1.3 mg/dL Glomerular Filtration Rate Calc 85 >90 mL/min Random Glucose 110 H 70-105 mg/dL Total Calcium 8.0 L 8.5-10.1 mg/dL Prothrombin Time 10.4 9.6-11.6 SEC Prothromb Time International Ratio 0.98 0.85-1.15 Activated Partial Thromboplast Time 27.3 26.3-35.5 SEC ASSESSMENT: Pneumonia. Dehydration. Acute gastritis. Hypertension. Abdominal pain, s/p EGD with findings of acute gastritis and reflux esophagitis without bleeding. Leukocytosis, resolved. History of chronic obstructive pulmonary disease. PLAN: Continue Zosyn. Continue Ceftriaxone. Continue Protonix as recommended bt Gastroenterology. Continue IV fluids. Advance diet as tolerated. Continue abdominal pain. Plan to discharge patient to home on Saturday. This case was reviewed and discussed with my supervising physician Dr. Fan and the above assessment and plan was formulated and agreed upon. ATTESTATION BY PHYSICIAN I have seen and examined the patient. I reviewed the documentation, medical decision making, and treatment plan as noted by the mid-level provider above. I agree with the findings and plan of care. YEMI FAN MD, MIRTA L [facility] May 29, 2025 14:43
[2025-05-30] VITALS (8 sets, daily range): BP systolic 112–137; BP diastolic 43–74; PULSE 69–91; RESP 14–18; TEMP 97.7–98.5; O2SAT 98–100
[2025-05-30 05:46] LABS: CREATININE 1.0 mg/dL (0.5-1.3); GLOMERULAR FILTR. RATE CALC 72.0 mL/min (>90); GLUCOSE,RANDOM 99.0 mg/dL (70-105); SODIUM SERUM 142.0 mmol/L (136-145); UREA NITROGEN, BLOOD 9.0 mg/dL (7-18)
[2025-05-30 05:51] LABS: NUCLEATED RED BLOOD CELLS 0.0 % (0.0-0.19); PLATELET COUNT (AUTO) 347.0 K/uL (130-400); RED BLOOD CELL COUNT(AUTO) 2.92 MIL/uL (4.50-6.20); RED CELL DISTRIBUTION WIDTH 15.7 % (11.0-15.5); WHITE BLOOD COUNT (AUTO) 6.8 K/uL (4.8-10.8)
[2025-05-30] MEDS: ENOXAPARIN SODIUM 40 MG/0.4 ML SYRINGE SQ SCH (10:43)
[2025-05-30] MEDS: MAGNESIUM 2GM PREMIX 50ML 50 ML IV PRN (20:52)
--- NOTE | 2025-05-30 21:41 | PN ---
INFECTIOUS DISEASE PROGRESS NOTE Date of Service: May 30, 2025 SUBJECTIVE: This is a 89-year-old male patient who was seen and examined at bedside in room 414. Patient is awake, alert and able to answer basic questions. No family member present at bedside. Patient is afebrile, temperature is 97.7. We will advance diet as tolerated. We will continue on Zosyn and doxycycline. PHYSICAL EXAM EYES: No icterus. Pupils equal and reactive. HENT: No oral thrush seen. Moist oral mucosa. NECK: Supple. No JVD or thyromegaly. LUNGS: Good air entry. Crackles at the bases. CARDIOVASCULAR: S1 and S2 regular. No murmur heard. ABDOMEN: Full, soft. Bowel sound is present. Abdominal pain POA, resolving. the epigastrium. CENTRAL NERVOUS SYSTEM: Awake, alert and oriented x 3. SKIN: No rashes. No itchiness. LYMPHATIC: No peripheral lymphadenopathy. BACK: No deformity. No pressure ulcer. MUSCULOSKELETAL: No joint swelling, erythema or tenderness. Vital Sign (Last 12 Hours) 05/30/25 05/30/25 05/30/25 11:43 16:48 20:00 Temp 97.7 98.1 98.4 Pulse 91 75 75 Resp 16 14 18 B/P (MAP) 128/74 112/43 131/66 Pulse Ox 99 98 95 O2 Delivery Room Air Room Air Room Air l Intake & Output (last 24hrs) 05/29/25 05/29/25 05/30/25 15:00 23:00 07:00 Intake Total 950 ml 557.0 ml Output Total 300 ml Balance 650 ml 557.0 ml LABS: Laboratory: Test 05/30/25 05:18 05/29/25 05:32 Range/Units White Blood Count 6.8 # 4.8-10.8 K/uL Red Blood Count 2.92 L 4.50-6.20 MIL/uL Hemoglobin 8.4 L 14.0-18.0 g/dL Hematocrit 25.9 L 42-54 % Mean Corpuscular Volume 88.7 79-99 fL Mean Corpuscular Hemoglobin 28.8 27.0-33.0 pg Mean Corpuscular Hemoglobin Concent 32.4 32.0-36.0 g/dL Red Cell Distribution Width 15.7 H 11.0-15.5 % Platelet Count 347 130-400 K/uL Mean Platelet Volume 10.3 7.5-10.5 fL Nucleated Red Blood Cells 0.0 0.0-0.19 % Sodium Level 142 136-145 mmol/L Potassium Level 4.0 3.5-5.1 mmol/L Chloride Level 109 101-111 mmol/L Carbon Dioxide Level 27 21-32 mmol/L Blood Urea Nitrogen 9 7-18 mg/dL Creatinine 1.0 0.5-1.3 mg/dL Glomerular Filtration Rate Calc 72 >90 mL/min Random Glucose 99 70-105 mg/dL Total Calcium 8.1 L 8.5-10.1 mg/dL Magnesium Level 1.70 L 1.80-2.40 mg/dL Immature Granulocyte % (Auto) 0.3 0-1 % Neutrophils (%) (Auto) 79.3 H 40.0-77.0 % Lymphocytes (%) (Auto) 10.9 L 21.0-51.0 % Monocytes (%) (Auto) 6.3 3.0-13.0 % Eosinophils (%) (Auto) 2.7 0.0-8.0 % Basophils (%) (Auto) 0.5 0.0-5.0 % Neutrophils # (Auto) 7.5 1.8-7.7 K/uL Lymphocytes # (Auto) 1.0 1.0-4.8 K/uL Monocytes # (Auto) 0.6 0.1-1.0 K/uL Eosinophils # (Auto) 0.26 0.00-0.70 K/uL Basophils # (Auto) 0.05 0.00-0.20 K/uL Absolute Immature Granulocyte (auto 0.03 0-1 K/uL ASSESSMENT: Pneumonia. Dehydration. Acute gastritis. Hypertension. Abdominal pain, s/p EGD with findings of acute gastritis and reflux esophagitis without bleeding. Leukocytosis, resolved. History of chronic obstructive pulmonary disease. PLAN: Continue Zosyn. Continue Ceftriaxone. Continue Protonix as recommended bt Gastroenterology. Continue IV fluids. Advance diet to GI soft. Plan to discharge patient to home tomorrow. This case was reviewed and discussed with my supervising physician Dr. Fan and the above assessment and plan was formulated and agreed upon. ATTESTATION BY PHYSICIAN I have seen and examined the patient. I reviewed the documentation, medical decision making, and treatment plan as noted by the mid-level provider above. I agree with the findings and plan of care. YEMI FAN MD, MIRTA L [facility] May 30, 2025 21:41
[2025-05-31] VITALS (8 sets, daily range): BP systolic 123–144; BP diastolic 58–67; PULSE 69–107; RESP 16–20; TEMP 97.6–98.4; O2SAT 96–97
[2025-05-31 03:55] LABS: NUCLEATED RED BLOOD CELLS 0.0 % (0.0-0.19); PLATELET COUNT (AUTO) 315 K/uL (130-400); RED BLOOD CELL COUNT(AUTO) 2.68 MIL/uL (4.50-6.20); RED CELL DISTRIBUTION WIDTH 15.9 % (11.0-15.5); WHITE BLOOD COUNT (AUTO) 7.8 K/uL (4.8-10.8)
[2025-05-31 04:09] LABS: CREATININE 1.0 mg/dL (0.5-1.3); GLOMERULAR FILTR. RATE CALC 72.0 mL/min (>90); GLUCOSE,RANDOM 163.0 mg/dL (70-105); SODIUM SERUM 140.0 mmol/L (136-145); UREA NITROGEN, BLOOD 12.0 mg/dL (7-18)
[2025-05-31 11:29] LABS: % IRON SATURATION 17.1 % (30-44); IRON, SERUM 35.0 mcg/dL (65-175)
[2025-05-31] MEDS ORDERED: COMPOUND IV REFRIGERATED 1 EACH IVSOLN MISC PRN (14:30)
[2025-05-31] MEDS ORDERED: COMPOUND IV MISC 1 EACH IVSOLN MISC PRN (14:30)
--- NOTE | 2025-05-31 18:30 | NUR ---
EDUCATED PATIENT AND FAMILY ABOUT SCHEDULED DISCHARGE POST IVPB INFUSION OF VENEFER. FAMILY REQUESTING THAT THE PATIENT STAY TONIGHT DUE TO NOT HAVING HOME PREPARED FOR PATIENT YET. WOULD LIKE THE NIGHT TO GO SET UP THE PATIENTS ROOM AND MAKE ARRANGEMENTS FOR TRANSPORTING THE PATIENT HOME. CONTACTED Chris BUCKLEY NP, WHO OKAYED TO POSTPONE D/C ORDERED 2ND DOSE OF VENOFER IN AM. Addendum: 05/31/25 at 2014 by IVONNE MARTINEZ RN RN Amended: Links added.
--- NOTE | 2025-05-31 18:32 | DS ---
Discharge Summary Hospital Course FINAL DISCHARGE DIAGNOSIS: Pneumonia. Dehydration. Acute gastritis. Hypertension. Abdominal pain, s/p EGD with findings of acute gastritis and reflux esophagitis without bleeding. Leukocytosis, resolved. History of chronic obstructive pulmonary disease. PLAN: Discharge patient to home today after Venofer infusion. Follow up with Gastroenterology in 1-2 weeks. Continue full liquid diet for one week as recommended by Gastroenterology. Follow up with PCP in 3-5 days. This case was reviewed and discussed with my supervising physician Dr. Fan and the above assessment and plan was formulated and agreed upon. ATTESTATION BY PHYSICIAN I have seen and examined the patient. I reviewed the documentation, medical decision making, and treatment plan as noted by the mid-level provider above. I agree with the findings and plan of care. YEMI FAN MD, MIRTA L [facility] May 31, 2025 18:32
[2025-06-01] VITALS: BP 145/73; PULSE 72; RESP 18; TEMP 97.8
[2025-06-01 03:59] LABS: NUCLEATED RED BLOOD CELLS 0.0 % (0.0-0.19); PLATELET COUNT (AUTO) 306.0 K/uL (130-400); RED BLOOD CELL COUNT(AUTO) 2.78 MIL/uL (4.50-6.20); RED CELL DISTRIBUTION WIDTH 15.9 % (11.0-15.5); WHITE BLOOD COUNT (AUTO) 7.8 K/uL (4.8-10.8)
[2025-06-01 04:00] VITALS: BP 145/70; PULSE 71; RESP 18; TEMP 97.6
[2025-06-01 08:00] VITALS: BP 138/75; PULSE 77; RESP 16; TEMP 97.7
[2025-06-01 11:37] VITALS: O2SAT 97
--- NOTE | 2025-06-01 11:56 | NUR ---
D/C POST VENOFER: ORDERS TO D/C POST VENOFER. PER FAMILY, WILL HAVE ARRANGEMENTS FOR TRANSPORTATION @ 1400 TODAY. Addendum: 06/01/25 at 1158 by IVONNE MARTINEZ RN RN Amended: Links added.
[2025-06-01 12:00] VITALS: BP 131/66; PULSE 72; RESP 16; TEMP 98.4
--- NOTE | 2025-06-01 14:17 | NUR ---
D/C DELAY: CONTACTED FAMILY TO UPDATE THAT PATIENT HAS COMPLETED VENOFER INFUSION AND AWAITING TRANSPORTATION POST DISCHARGE. PER DAUGHTER IN LAW, TRANSPORTATION THAT WAS ORIGINALLY SET UP TO PICK PATIENT UP AT 1400 WAS NOT SET UP AFTER ALL AND THAT SON WOULD BE GETTING OUT EARLY TO BE PICKING THE PATIENT UP AT 1530.
--- NOTE | 2025-06-01 15:48 | NUR ---
PATIENT DISCHARGED. IV REMOVED INTACT. ALL BELONGINGS GATHERED AND TAKEN BY PATIENT AND FAMILY. HOME MEDICATIONS GIVEN TO SON. EDUCATED ON FULL LIQUID DIET UNTIL SEEN BY GI IN 1 WEEK AND FOLLOW UP APPT WITH PCP IN 2-3 DAYS. ALL QUESTIONS AND CONCERNS ANSWERED. PT AND FAMILY VERBALIZED UNDERSTANDING. PATIENT TAKEN DOWN VIA WHEELCHAIR ALERT AND ORIENTED X 3.
--- NOTE | 2025-06-01 18:17 | DS ---
Discharge Summary Hospital Course FINAL DISCHARGE DIAGNOSIS: Pneumonia. Dehydration. Acute gastritis. Hypertension. Abdominal pain, s/p EGD with findings of acute gastritis and reflux esophagitis without bleeding. Leukocytosis, resolved. History of chronic obstructive pulmonary disease. PLAN: Discharge patient to home today. Continue same home medications. Refer to new prescription for Protonix x 8 weeks. Follow up with Gastroenterology in 1-2 weeks. Continue full liquid diet for one week as recommended by Gastroenterology. Follow up with PCP in 3-5 days. This case was reviewed and discussed with my supervising physician Dr. Fan and the above assessment and plan was formulated and agreed upon. ATTESTATION BY PHYSICIAN I have seen and examined the patient. I reviewed the documentation, medical decision making, and treatment plan as noted by the mid-level provider above. I agree with the findings and plan of care. YEMI FAN MD, MIRTA L [facility] Jun 01, 2025 18:17
--- NOTE | 2025-06-01 18:18 | PN ---
INFECTIOUS DISEASE PROGRESS NOTE Date of Service: May 31, 2025 SUBJECTIVE: This is a 89-year-old male patient who was seen and examined at bedside in room 414. Patient' s was not able to be advanced due to director new product recommendation for patient to remain on full liquid diet for one week. Patient was discharged to home today, family member however was unable to order picker/assembler patient today. Patient remains afebrile, temperature is 98.2. We will continue on Zosyn and doxycycline. No antibiotics needed on discharge. PHYSICAL EXAM EYES: No icterus. Pupils equal and reactive. HENT: No oral thrush seen. Moist oral mucosa. NECK: Supple. No JVD or thyromegaly. LUNGS: Good air entry. Crackles at the bases. CARDIOVASCULAR: S1 and S2 regular. No murmur heard. ABDOMEN: Full, soft. Bowel sound is present. Abdominal pain POA, resolving. the epigastrium. CENTRAL NERVOUS SYSTEM: Awake, alert and oriented x 3. SKIN: No rashes. No itchiness. LYMPHATIC: No peripheral lymphadenopathy. BACK: No deformity. No pressure ulcer. MUSCULOSKELETAL: No joint swelling, erythema or tenderness. Vital Sign (Last 12 Hours) 06/01/25 06/01/25 06/01/25 08:00 11:37 12:00 Temp 97.7 98.4 Pulse 77 72 Resp 16 16 B/P (MAP) 138/75 131/66 Pulse Ox 97 97 98 O2 Delivery Room Air Room Air* Room Air O2 Flow Rate 0 FiO2 21 Intake & Output (last 24hrs) 05/31/25 05/31/25 06/01/25 15:00 23:00 07:00 Intake Total 460.0 ml 460.0 ml 500.0 ml Output Total 250 ml 200 ml Balance 210.0 ml 260.0 ml 500.0 ml LABS: Laboratory: Test 06/01/25 03:51 05/31/25 12:20 05/31/25 05:39 05/31/25 03:39 Range/Units White Blood Count 7.8 4.8-10.8 K/uL Red Blood Count 2.78 L 4.50-6.20 MIL/uL Hemoglobin 8.0 L 14.0-18.0 g/dL Hematocrit 25.8 L 42-54 % Mean Corpuscular Volume 92.8 79-99 fL Mean Corpuscular Hemoglobin 28.8 27.0-33.0 pg Mean Corpuscular Hemoglobin Concent 31.0 L 32.0-36.0 g/dL Red Cell Distribution Width 15.9 H 11.0-15.5 % Platelet Count 306 130-400 K/uL Mean Platelet Volume 9.8 7.5-10.5 fL Nucleated Red Blood Cells 0.0 0.0-0.19 % Stool Occult Blood POSITIVE H NEGATIVE Iron Level 35 L 65-175 mcg/dL Total Iron Binding Capacity 204 L 250-450 mcg/dL Percent Iron Saturation 17.1 L 30-44 % Red Blood Cell Morphology See comments Sodium Level 140 136-145 mmol/L Potassium Level 3.3 L 3.5-5.1 mmol/L Chloride Level 106 101-111 mmol/L Carbon Dioxide Level 26 21-32 mmol/L Blood Urea Nitrogen 12 7-18 mg/dL Creatinine 1.0 0.5-1.3 mg/dL Glomerular Filtration Rate Calc 72 >90 mL/min Random Glucose 163 #H 70-105 mg/dL Total Calcium 7.7 L 8.5-10.1 mg/dL Magnesium Level 2.10 1.80-2.40 mg/dL ASSESSMENT: Pneumonia. Dehydration. Acute gastritis. Hypertension. Abdominal pain, s/p EGD with findings of acute gastritis and reflux esophagitis without bleeding. Leukocytosis, resolved. History of chronic obstructive pulmonary disease. PLAN: Continue Zosyn. Continue Ceftriaxone. Continue Protonix as recommended by Gastroenterology. Continue IV fluids. Patient to remain on full liquid diet for one week as recommended by Gastroenterology. Patient was discharged to home today, family member however was unable to order picker/assembler patient today. No antibiotics needed on discharge. This case was reviewed and discussed with my supervising physician Dr. Fan and the above assessment and plan was formulated and agreed upon. ATTESTATION BY PHYSICIAN I have seen and examined the patient. I reviewed the documentation, medical decision making, and treatment plan as noted by the mid-level provider above. I agree with the findings and plan of care. YEMI FAN MD, MIRTA L [facility] Jun 01, 2025 18:18
== END 2025-06-01 16:15 | disposition home or self-care (01) | DRG 377 ==
LOC: EDH 01:11 → EDHIP 06:01 → 4CH 08:50
PROVIDERS: ADMIT Internal Medicine Infectious Disease; ATTEND Internal Medicine Infectious Disease
PROC: 0D798ZZ Dilation of Duodenum, Via Natural or Artificial Opening Endoscopic (ICD-10-PCS; principal; 2025-05-28)
PROC: 0DB98ZX Excision of Duodenum, Via Natural or Artificial Opening Endoscopic, Diagnostic (ICD-10-PCS; 2025-05-28)
PROC: 0DB78ZX Excision of Stomach, Pylorus, Via Natural or Artificial Opening Endoscopic, Diagnostic (ICD-10-PCS; 2025-05-28)
PROC: 0DB68ZX Excision of Stomach, Via Natural or Artificial Opening Endoscopic, Diagnostic (ICD-10-PCS; 2025-05-28)
PROC: 0DB38ZX Excision of Lower Esophagus, Via Natural or Artificial Opening Endoscopic, Diagnostic (ICD-10-PCS; 2025-05-28)
DX: K29.01 Acute gastritis with bleeding (principal); J18.9 Pneumonia, unspecified organism; J96.10 Chronic respiratory failure, unspecified whether with hypoxia or hypercapnia; J44.0 Chronic obstructive pulmonary disease with (acute) lower respiratory infection; Z99.81 Dependence on supplemental oxygen; I10 Essential (primary) hypertension; F03.90 Unspecified dementia, unspecified severity, without behavioral disturbance, psychotic disturbance, mood disturbance, and anxiety; D64.9 Anemia, unspecified; N20.0 Calculus of kidney; E86.0 Dehydration; E78.5 Hyperlipidemia, unspecified; K21.00 Gastro-esophageal reflux disease with esophagitis, without bleeding; Z87.891 Personal history of nicotine dependence
CPT/HCPCS: 36415; 43239; 43245; 71045; 74177; 80048; 80076; 81001; 82270; 82550; 83540; 83550; 83605; 83690; 83735; 84100; 84484; 85025; 85027; 85610; 85730; 87040; 87426; 87804; 88305; 88312; 96374; 99285; A4606; C1726; G0378; J0696; J1650; J1756; J2003; J2470; J2543; J2704; J3475; J7030; J7042; J7050; Q9967; A4215; A4222; A4223; A4620; A4657; A4663; A7002; J3490